=== PATIENT | male | born 1995 | race Caucasian/White ===

== ENCOUNTER 2018-06-22 15:33 | Emergency (ER) | payer OTHER, SELFPAY ==
[2018-06-22 15:35] VITALS: BP 154/90; PULSE 105; RESP 16; TEMP 36.4; O2SAT 96; BMI 31.3
--- NOTE | 2018-06-22 15:46 | ED.DCSUM_ITS ---
- ER Visit Summary Date of Service: 06/22/18 Chief Complaint: Nausea and vomiting History of Present Illness: The patient is a 22 M patient presenting for evaluation secondary nausea vomiting. Patient reports over the course of the last week he has been dealing with flulike symptoms. He reports that he went to urgent care at the outset of this, was tested as being negative for influenza and strep but was put on Tamiflu anyway. Patient states that he felt better for a couple of days, and has since started to feel worse again. He reports that he has continued rhinorrhea sore throat and cough. Today he developed nausea and vomiting. He reports that he had up to 20 episodes of nonbilious emesis, with one episode where he had some small blood streaks. He denies any diarrhea. He states that he is having some mild abdominal pain associated with this. Patient reports that he went to urgent care again today, and they told him that if he did not feel better within an hour or so he should go to the ER. Physical Examination: Vital signs are within normal limits for mild tachycardia with a rate of 105, patient is afebrile. General: Patient is well-nourished well-developed and in no acute distress. Head: Normocephalic, atraumatic Eyes: Pupils equal round and reactive bilaterally, extra occular motion intact bialterally ENT: Moist mucous membranes, palatal petechia likely secondary to vomiting Neck: Supple, no lymphadenopathy, no JVD, no meningismus CVS: Heart regular rhythm with minimal tachycardia, no murmurs, rubs or gallops, radial pulses 2+ bilaterally Resp: Respirations nondistressed, lung sounds clear bilaterally Abdomen: Soft, tender in the epigastrium and right upper quadrant negative Redmond sign no guarding or rebound, nondistended, no palpable masses, normal bowel sounds Back: Nontender Extremities: Nontender, atraumatic, active full range of motion, no peripheral edema Skin: warm, no rashes, no petechia Neuro: Alert and oriented x 4, CN 2-12 intact, no lateralizing neurological defecits Psyc: Normal affect Test Results: CBC chemistry liver and lipase found to be within normal limits Emergency Department Course and Treatment: Patient presented secondary to nausea and vomiting and some abdominal pain. Patient has benign abdominal exam do not believe that imaging is indicated. Patient's lab work is negative making the likelihood of cholecystitis or pancreatitis unlikely. Patient was treated initially with Zofran and a liter of normal saline and had no improvement. He was then given Phenergan and a GI cocktail and had improvement. At this point I believe the patient likely has an element of gastritis will be discharged with a course of Phenergan and Pepcid and instructions on a clear liquid diet follow-up with primary care. Disposition: Discharge Impression: 1. Gastritis This note was generated with [employer] dictation software. It may contain incorrect words, spelling, and punctuation that were not noted in review of the chart prior to signing ED Disposition - Plan for ED Patient: Disposition: Home or Assisted Living Chief Complaint: Nausea/Vomiting/Diarrhea Diagnosis: Gastritis Instructions: ED Gastroenteritis Viral Prescriptions: proMETHazine tablet [Phenergan] 25 mg PO Q6H PRN PRN #10 tab PRN Reason: Nausea Famotidine [Pepcid] 20 mg PO BID #28 tab Referrals: Jason Becerril MD [NON-STAFF] - 3-5 Days if not improving
[2018-06-22] MEDS: Ondansetron 4 MG/2 ML Vial IV (16:09)
[2018-06-22] MEDS: 0.9% Normal Saline 1,000 ML 1000 ML IV (16:09)
[2018-06-22 16:28] LABS: Absolute Lymphocyte Count 1.55 X10^3/ul (0.83-4.51); Absolute Neutrophil Count 7.4 X10^3/uL (2.0-7.7); Basophil# 0.03 X10^3/uL; Basophil% 0.3 % (0-1); Eosinophil# 0.11 X10^3/uL; Eosinophils% 1.1 % (0-5); Hemoglobin 15.7 g/dl (13.0-16.5); Lymphocyte # 1.55 X10^3/ul (4.0); Lymphocyte % 15.9 % (19-41); Mean Corp Hgb Conc 34.9 g/gl (32-36); Mean Platelet Vol. 10.5 fl (6.2-12.0); Monocyte# 0.57 X10^3/uL; Monocyte% 5.8 % (0-10); Neutrophil % 75.9 % (47-70); Platelet Count 261 K/mm3 (150-450); RBC Distribution Width CV 13.2 % (11.6-14.6); RBC Distribution Width SD 40.5 fl (35.1-43.9); Red Blood Count 5.23 M/mm3 (4.6-6.2); White Blood Count 9.8 K/mm3 (4.4-11.0)
[2018-06-22 16:32] LABS: POSITIVE COUNT NO; POSITIVE DIFFERENTIAL NO; POSITIVE MORPHOLOGY NO
[2018-06-22 16:45] LABS: ALB/GLOB Ratio 1.1 RATIO (0.9-2.4); AST(SGOT) 28 U/L (15-37); Alanine Aminotransfer ALT/SGPT 67 U/L (16-61); Alkaline Phosphatase 57 U/L (45-117); Anion Gap 9 (5-15); BUN 15 mg/dL (7-18); BUN/Creat Ratio 13.6 RATIO (10-20); Calcium,Total 8.7 mg/dL (8.5-10.1); Chloride 105 mmol/L (98-107); EST Glomerular Filtration Rate 88 mL/min (>60); Est Glom Filt Rate - Afr Amer 107 mL/min (>60); Estimated Creatinine Clearance 98.48 ml/min; Globulin 3.8 g/dL (2.2-4.2); Glucose 100 mg/dL (74-106); Lipase 67 U/L (73-393); Potassium 3.8 mmol/L (3.5-5.1); Protein, Total 7.8 g/dL (6.4-8.2); Sodium Level 143 mmol/L (136-145)
[2018-06-22] MEDS: proMETHazine 25 MG/ML Syringe 6.25 MG IV (17:16)
[2018-06-22] MEDS: Mag Hydrox/Al Hydrox/Simeth 30 ML UDC PO (17:16)
[2018-06-22 17:19] VITALS: BP 152/74; PULSE 93; RESP 16; O2SAT 98
[2018-06-22 18:12] VITALS: BP 152/78; PULSE 86; RESP 18; O2SAT 99
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
== END 2018-06-22 18:13 | disposition home or self-care (01) ==
PROVIDERS: Emergency Provider Emergency Medicine
DX: K29.70 Gastritis, unspecified, without bleeding (principal)
CPT/HCPCS: 80053; 83690; 85025; 96361; 96374; 96375; 99282; J7030; A4216; J2405